=== PATIENT | male | born 1955 | race Caucasian/White ===

== ENCOUNTER 2016-10-20 09:27 | Emergency (ER) | payer OTHER ==
[2016-10-20 09:39] VITALS: RESP 16
--- NOTE | 2016-10-20 09:52 | EDPHY ---
H & P Stated Complaint: back pain Time Seen by Provider: 10/20/16 09:35 HPI/ROS: CHIEF COMPLAINT: Lower back pain with muscle spasm HISTORY OF PRESENT ILLNESS: This is a 61-year-old male patient presenting to the emergency department via EMS, Patient complaining of increased lower back pain with muscle spasms. Patient stated he went to the gym 10 days ago was in an intense CrossFit class, that evening he started to notice some lower back pain but no spasms. For the past 9 days patient started to notice an increase in lower back pain and this morning around 0600 he could even get out of bed due to spasms . No bowel or bladder incontinence, but does state he has not had a bowel movement 24 hours. States he does have a history of chronic lower back pain with spasms but nothing never this bad. Versed 1 mg, fentanyl 100mcg given by EMS prior to arrival. Patient reports a 1/10 back spasms REVIEW OF SYSTEMS: Constitutional: No fever, no chills. Eyes: No visual changes. ENT: No sore throat. Respiratory: No cough, no shortness of breath. Cardiac: No chest pain. Gastrointestinal: Abdominal fullness, has not had a bowel movement in 24 hours Genitourinary: No hematuria. No bowel or bladder incontinence Musculoskeletal: Lower back pain with spasms, decreased range of motion due to pain Skin: No rashes. Neurological: No headache. Source: Patient, EMS - Personal History Current Tetanus/Diphtheria Vaccine: Yes Current Tetanus Diphtheria and Acellular Pertussis (TDAP): Yes Tetanus Vaccine Date: last 10 years - Medical/Surgical History Hx Asthma: No Hx Chronic Respiratory Disease: No Hx Diabetes: No Hx Cardiac Disease: No Hx Renal Disease: No Hx Cirrhosis: No Hx Alcoholism: No Hx HIV/AIDS: No Hx Splenectomy or Spleen Trauma: No Other PMH: sciatica and pulmonary fibrosis - Social History Smoking Status: Never smoked - Physical Exam Exam: General Appearance: Alert, no distress. Eyes: Pupils equal and round no pallor or injection. ENT, Mouth: Mucous membranes moist. Respiratory: Nonlabored respiratory effort Cardiovascular: Regular rate and rhythm. Gastrointestinal: Abdomen is soft and nontender, some distension positive suprapubic tenderness on palpation no masses, Neurological: No focal neuro deficits Skin: Warm and dry, no rashes. Musculoskeletal: No Cervical vertebral tenderness on palpation. Neck is supple nontender. No thoracic spine or lumbar spine vertebral tenderness on palpation Extremities: symmetrical, full range of motion. Positive straight leg raises right lower extremity with pain Psychiatric: Patient is oriented X 3, there is no agitation. Constitutional: Initial Vital Signs Temperature (C) 36.4 C 10/20/16 09:27 Heart Rate 87 10/20/16 09:27 Respiratory Rate 16 10/20/16 09:27 Blood Pressure 175/103 H 10/20/16 09:27 O2 Sat (%) 98 10/20/16 09:27 O2 Delivery Mode Room Air O2 (L/minute) 2 Allergies/Adverse Reactions: Penicillins Allergy (Verified 10/20/16 09:40) Home Medications: Medication Instructions Recorded CYCLOBENZAPRINE HCL [Flexeril] 10/20/16 Diazepam [Valium 2 MG (*)] 2 mg PO TID #30 tab 10/20/16 Hydrocodone/APAP 5/325 [Elaine 1 each PO 10/20/16 5/325 (*)] Lidocaine 5% [Lidoderm 5% Patch 3 ea TD DAILY #0 patch 10/20/16 (*)] methylPREDNISolone [Medrol Dose 1 each PO AD #0 ea 10/20/16 Donaldo] Medical Decision Making - Diagnostics Imaging: Imaging Impressions Lumbar Spine MRI 10/20/16 11:22 Impression: 1. Focal small right paracentral disk protrusion at L4-L5, with mild local neural mass effect. 2. Horseshoe kidney. 3. Other level findings as above. Results called to Dr. Santillan. ED Course/Re-evaluation: Discussed plan of care: MRI of lower back 1230: Attempted to ambulate patient, patient unable to due to increased pain in lower back 1410: Patient ambulatory with walker, reports feels some decrease in pain but is able to ambulate better now that he has a walker. No neuro deficits 1415: Discussed following up with [facility] for further evaluation. Number given for an appointment 1450: Discharge home---> stable, discussed discharge instructions with patient Differential Diagnosis: Differential diagnosis considered but not limited to spinal cord compression, vertebral fracture ruptured herniated disc - Data Points Medications Given: Discontinued Medications Hydromorphone HCl (Dilaudid) 1 mg IVP EDNOW ONE Stop: 10/20/16 11:24 Last Admin: 10/20/16 11:44 Dose: 1 mg Departure - Departure Disposition: Home, Routine, Self-Care Clinical Impression: Low back pain radiating to right lower extremity Herniated disc Qualifiers: Spinal region: lumbar Qualified Code(s): M51.26 - Other intervertebral disc displacement, lumbar region Condition: Good Instructions: Low Back Strain (ED), Lumbar Radiculopathy (ED) Additional Instructions: 1. Decrease any strenuous activity 2. you can use the topical lidocaine patches to the area of pain leave on for 12 hours leave off for 12 hours do not use a heating pad on top of this as you can cause a second-degree burn 3. Use walker as needed, this can help decrease stress on lower back 4. Follow up with [facility] [phone] 5. If any symptoms worsen you have bowel or bladder incontinence numbness to lower extremities return to the emergency department Referrals: Patient,NotPresent [Unknown] - As per Instructions Jose Francisco Moody MD [Medical Doctor] - As per Instructions Prescriptions: Diazepam [Valium 2 MG (*)] 2 mg PO TID #30 tab Lidocaine 5% [Lidoderm 5% Patch (*)] 3 ea TD DAILY #0 patch methylPREDNISolone [Medrol Dose Donaldo] 1 each PO AD #0 ea
[2016-10-20] MEDS ORDERED: HYDROmorphONE/DILAUDID 1 MG/ML SYR IVP ONE (11:23)
[2016-10-20] MEDS ORDERED: LIDOCAINE 5% 1 EA PATCH TD ONE (14:43)
[2016-10-20 15:06] VITALS: BP 132/91; PULSE 86; TEMP 97.9; O2SAT 96
[2016-10-20] MEDS ORDERED: PATCH REMOVAL 1 EA PATCH TD SCH (21:00)
[2016-10-21] MEDS ORDERED: LIDOCAINE 5% 1 EA PATCH TD SCH (09:00)
== END 2016-10-20 15:08 | disposition home or self-care (01) ==
LOC: EDUNIT#
DX: M51.26 Other intervertebral disc displacement, lumbar region (principal)
CPT/HCPCS: 96374; J1170